=== PATIENT | male | born 1950 | race Caucasian/White ===

== ENCOUNTER 2025-01-13 13:39 | Outpatient (CLI) | payer MEDICARE, SELFPAY | END 2025-01-13 13:40 | disposition home or self-care (01) | LOC: RAD 13:41 | PROVIDERS: PCP Internal Medicine; Visit Provider Internal Medicine Cardiovascular Disease | DX: I25.5 Ischemic cardiomyopathy (principal); I34.0 Nonrheumatic mitral (valve) insufficiency; I50.22 Chronic systolic (congestive) heart failure; I25.10 Atherosclerotic heart disease of native coronary artery without angina pectoris; Z95.1 Presence of aortocoronary bypass graft; Z98.890 Other specified postprocedural states | CPT/HCPCS: 93306 ==